=== PATIENT | male | born 1985 | race Hispanic/Latino ===

== ENCOUNTER 2022-03-29 19:06 | Emergency (ER) | payer OTHER ==
[2022-03-29 19:35] LABS: Absolute Lymphocytes (CBC) 2.9 K/uL (0.7-4.9); Hematocrit 46.5 % (39.6-49.0); Lymphocytes % 43.9 % (15.3-44.8); MCV 87.8 fL (80-100); MPV 8.9 fL (7.6-11.3); RBC Red Blood Cell Count 5.29 M/uL (4.33-5.43)
[2022-03-29 19:49] LABS: Potassium 3.8 mmol/L (3.5-5.1); Troponin High Sensitivity 3.2 pg/mL (<58.9)
[2022-03-29 19:54] LABS: Urine Blood Negative (Negative); Urine Glucose Negative (Negative); Urine Protein Negative (Negative); Urine Specific Gravity 1.025 (1.005-1.030); Urine pH 6.5 (5.0-7.0)
--- NOTE | 2022-03-29 21:23 | RAD REPORT ---
EXAM DESCRIPTION: RAD - Chest Single View - 03/29/2022 8:19 pm CLINICAL HISTORY: CHEST PAIN Chest pain. COMPARISON: No comparisons FINDINGS: Portable technique limits examination quality. The lungs are grossly clear. The heart is normal in size. No displaced fractures.Moderate hiatal joyce ia. IMPRESSION: No acute intrathoracic process suspected.
--- NOTE | 2022-03-29 22:52 | ER ---
Nurse's Notes [facility] Name: Andrez Kulkarni Age: 36 yrs Sex: Male : 1985 Arrival Date: 03/29/2022 Time: 19:09 Bed 23 Private MD: Diagnosis: Chest pain, unspecified Presentation: 03/29 19:16 Chief complaint: Patient states: Intermittent chest pain X 1 week. Pt reporting chest ld1 pain and mid upper back pain. Coronavirus screen: At this time, the client does not indicate any symptoms associated with coronavirus-19. Ebola Screen: No symptoms or risks identified at this time. Initial Sepsis Screen: Does the patient meet any 2 criteria? No. Patient's initial sepsis screen is negative. Does the patient have a suspected source of infection? No. Patient's initial sepsis screen is negative. Risk Assessment: Do you want to hurt yourself or someone else? Patient reports no desire to harm self or others. Onset of symptoms was March 29, 2022. 19:16 Method Of Arrival: Ambulatory ld1 19:16 Acuity: CAREY 3 ld1 Triage Assessment: 19:17 General: Appears in no apparent distress. comfortable, Behavior is calm, cooperative, ld1 appropriate for age. Pain: Complains of pain in chest Pain radiates to back Pain currently is 8 out of 10 on a pain scale. Quality of pain is described as throbbing. EENT: No signs and/or symptoms were reported regarding the EENT system. Neuro: Level of Consciousness is awake, alert, obeys commands, Oriented to person, place, time, situation. Cardiovascular: Capillary refill < 3 seconds Patient's skin is warm and dry. Rhythm is sinus tachycardia. Respiratory: Airway is patent Respiratory effort is even, unlabored. GI: Abdomen is round non-distended. : No signs and/or symptoms were reported regarding the genitourinary system. Derm: No signs and/or symptoms reported regarding the dermatologic system. Musculoskeletal: No signs and/or symptoms reported regarding the musculoskeletal system. Historical: - Allergies: 19:17 No Known Allergies; ld1 - PMHx: 19:17 Bipolar disorder; Schizophrenia; Hypercholesterolemia; Hypothyroidism; ld1 - PSHx: 19:17 None; ld1 - Immunization history:: Adult Immunizations up to date, Client reports having NOT received the Covid vaccine. - Social history:: Smoking status: Patient denies any tobacco usage or history of. Patient/guardian denies using alcohol. Screenin:38 Abuse screen: Denies threats or abuse. Abuse screen: Denies threats or abuse. Abuse bh1 screen: Denies threats or abuse. Nutritional screening: No deficits noted. Tuberculosis screening: No symptoms or risk factors identified. Fall Risk None identified. Assessment: 19:38 Pain: Pain began 2-3 days ago. 1 19:38 Reassessment: No changes from previously documented assessment. General: Appears in no [facility] apparent distress. Behavior is calm, cooperative, appropriate for age. Pain: Complains of pain in chest Pain does not radiate. Vital Signs: 19:16 BP 138 / 109; Pulse 84; Resp 18; Temp 98.1(TE); Pulse Ox 97% on R/A; Weight 76.2 kg; ld1 Height 5 ft. 1 in. (154.94 cm); Pain 8/10; 19:38 BP 133 / 105; Pulse 88; Resp 18; Pulse Ox 100% on R/A; bh1 20:54 BP 136 / 102; Pulse 88; Resp 18; Pulse Ox 99% on R/A; bh1 22:01 BP 138 / 106; Pulse 75; Resp 18; Pulse Ox 98% on R/A; bh1 22:57 BP 132 / 102; Pulse 88; Resp 18; Temp 98.3(O); Pulse Ox 100% on R/A; bh1 19:16 Body Mass Index 31.74 (76.20 kg, 154.94 cm) 1 ED Course: 19:09 Patient arrived in ED. as 19:11 Criselda Mendoza, KRISTAL is Primary Nurse. bh1 19:11 Lisa Madrid FNP-C is PHCP. kb 19:11 Haja Tripathi MD is Attending Physician. kb 19:17 Triage completed. ld1 19:17 Arm band placed on right wrist. ld1 19:21 Inserted saline lock: 20 gauge in right antecubital area, using aseptic technique. zm Blood collected. 19:22 Basic Metabolic Panel Sent. zm 19:22 CBC with Diff Sent. zm 19:22 Troponin HS Sent. zm 19:38 No apparent distress. Resting quietly. Awaiting lab results, Awaiting radiology results.bh1 19:38 Patient has correct armband on for positive identification. Placed in gown. Bed in low bh1 position. Call light in reach. Side rails up X 1. Adult w/ patient. guillotine operator on. Pulse ox on. NIBP on. 19:38 No provider procedures requiring assistance completed. Patient maintains SpO2 bh1 saturation greater than 95% on room air. 20:21 XRAY Chest (1 view) In Process Unspecified. EDMS 20:54 No apparent distress. Resting quietly. Awaiting lab results, Awaiting radiology results.[facility] 21:45 COVID-19 SARS RT PCR (Document "Date of Onset" if Symptomatic) Sent. [facility] 22:01 No apparent distress. Resting quietly. Awaiting lab results. [facility] 22:57 IV discontinued, intact, bleeding controlled, No redness/swelling at site. [facility] Administered Medications: No medications were administered Medication: 19:38 VIS not applicable for this client. [facility] Outcome: 22:52 Discharge ordered by . jackie 22:57 Discharged to home ambulatory. [facility] 22:57 Condition: good 22:57 Discharge instructions given to patient, family, Instructed on discharge instructions, follow up and referral plans. Demonstrated understanding of instructions, follow-up care. 22:58 Patient left the ED. [facility] Signatures: Dispatcher [employer] Lisa García, EZ HESS-Jovana Fisher Lauren, RN RN 1 Sveta Laird Barbara, RN RN 1
--- NOTE | 2022-03-29 22:52 | EDPHYS ---
Physician Documentation [facility] Name: Andrez Kulkarni Age: 36 yrs Sex: Male : 1985 Arrival Date: 03/29/2022 Time: 19:09 Bed 23 Private MD: ED Physician Haja Tripathi HPI: 03/29 21:08 This 36 yrs old Male presents to ER via Ambulatory with complaints of Chest kb Pain. 21:08 The patient or guardian reports chest pain that is located primarily in the anterior kb chest wall, left. The pain does not radiate. Associated signs and symptoms: The patient has no apparent associated signs or symptoms. The chest pain is described as aching. Duration: The patient or guardian reports multiple episodes. Modifying factors: The symptoms are alleviated by nothing. the symptoms are aggravated by nothing. Severity of pain: At its worst the pain was moderate in the emergency department the pain is unchanged. The patient has not experienced similar symptoms in the past. The patient has not recently seen a physician. Pt reports intermittent chest pain for a week. States he has also had some back pain. Historical: - Allergies: 19:17 No Known Allergies; ld1 - PMHx: 19:17 Bipolar disorder; Schizophrenia; Hypercholesterolemia; Hypothyroidism; ld1 - PSHx: 19:17 None; ld1 - Immunization history:: Adult Immunizations up to date, Client reports having NOT received the Covid vaccine. - Social history:: Smoking status: Patient denies any tobacco usage or history of. Patient/guardian denies using alcohol. ROS: 21:07 Constitutional: Negative for fever, chills, and weight loss. kb 21:07 Cardiovascular: Positive for chest pain, Negative for edema, orthopnea, palpitations, paroxysmal nocturnal dyspnea. 21:07 Back: Positive for pain at rest, of the left subscapular area and right subscapular area. 21:07 All other systems are negative. Exam: 21:07 Constitutional: This is a well developed, well nourished patient who is awake, alert, kb and in no acute distress. Head/Face: Normocephalic, atraumatic. ENT: Moist Mucous membranes Cardiovascular: Regular rate and rhythm with a normal S1 and S2. No gallops, murmurs, or rubs. No pulse deficits. Respiratory: Respirations even and unlabored. No increased work of breathing. Talking in full sentences Back: No spinal tenderness. No costovertebral tenderness. Full range of motion. Skin: Warm, dry with normal turgor. Normal color. MS/ Extremity: Pulses equal, no cyanosis. Neurovascular intact. Full, normal range of motion. Neuro: Awake and alert, GCS 15, oriented to person, place, time, and situation. Moves all extremities. Normal gait. Psych: Awake, alert, with orientation to person, place and time. Behavior, mood, and affect are within normal limits. Vital Signs: 19:16 BP 138 / 109; Pulse 84; Resp 18; Temp 98.1(TE); Pulse Ox 97% on R/A; Weight 76.2 kg; ld1 Height 5 ft. 1 in. (154.94 cm); Pain 8/10; 19:38 BP 133 / 105; Pulse 88; Resp 18; Pulse Ox 100% on R/A; bh1 20:54 BP 136 / 102; Pulse 88; Resp 18; Pulse Ox 99% on R/A; bh1 22:01 BP 138 / 106; Pulse 75; Resp 18; Pulse Ox 98% on R/A; bh1 22:57 BP 132 / 102; Pulse 88; Resp 18; Temp 98.3(O); Pulse Ox 100% on R/A; bh1 19:16 Body Mass Index 31.74 (76.20 kg, 154.94 cm) ld1 MDM: 19:11 Patient medically screened. kb 21:07 Data reviewed: vital signs, nurses notes. Data interpreted: Pulse oximetry: on room air kb is 99 %. Interpretation: normal. Counseling: I had a detailed discussion with the patient and/or guardian regarding: the historical points, exam findings, and any diagnostic results supporting the discharge/admit diagnosis, lab results, radiology results, the need for outpatient follow up, a family practitioner, to return to the emergency department if symptoms worsen or persist or if there are any questions or concerns that arise at home. 03/29 19:16 Order name: Basic Metabolic Panel; Complete Time: 19:51 kb 03/29 19:16 Order name: CBC with Diff; Complete Time: 19:46 kb 03/29 19:16 Order name: Troponin HS; Complete Time: 19:51 kb 03/29 19:16 Order name: XRAY Chest (1 view); Complete Time: 21:25 kb 03/29 19:54 Order name: Urine Dipstick-Ancillary; Complete Time: 20:05 EDMS 03/29 21:37 Order name: COVID-19 SARS RT PCR (Document "Date of Onset" if Symptomatic); Complete kb Time: 22:51 03/29 19:16 Order name: Cardiac monitoring; Complete Time: 19:22 kb 03/29 19:16 Order name: EKG - Nurse/Tech; Complete Time: 19:22 kb 03/29 19:16 Order name: IV Saline Lock; Complete Time: 19:22 kb 03/29 19:16 Order name: Labs collected and sent; Complete Time: 19:22 kb 03/29 19:16 Order name: O2 Per Protocol; Complete Time: 19:36 kb 03/29 19:16 Order name: O2 Sat Monitoring; Complete Time: 19:36 kb 03/29 19:16 Order name: Urine Dipstick-Ancillary (obtain specimen); Complete Time: 19:53 kb Administered Medications: No medications were administered Disposition Summary: 03/29/22 22:52 Discharge Ordered Location: Home kb Condition: Stable kb Diagnosis - Chest pain, unspecified kb Followup: kb - With: Emergency Department - When: As needed - Reason: Worsening of condition Followup: kb - With: Private Physician - When: 2 - 3 days - Reason: Recheck today's complaints, Continuance of care, Re-evaluation by your physician Discharge Instructions: - Discharge Summary Sheet kb - Nonspecific Chest Pain, Adult, [id number] kb Forms: - Medication Reconciliation Form kb - Thank You Letter kb - Antibiotic Education kb - Prescription Opioid Use kb Signatures: Dispatcher [employer] Lisa García, JIMENA-Alysia Sanches, RN RN ld1
[2022-03-29 23:09] VITALS: BP 132/102; TEMP 98.3; O2SAT 100
--- NOTE | 2022-03-30 09:50 | EKG ---
Test Date: 2022-03-29 Test Time: 19:20:18 Embryology Professor: CHIKA MEASUREMENT RESULTS: Intervals: Rate: 60 OK: 142 QRSD: 90 QT: 388 QTc: 388 [place]: P: 29 OK: 142 QRS: 76 T: 41 INTERPRETIVE STATEMENTS: Normal sinus rhythm Normal ECG No previous ECG available for comparison Electronically Signed On 03-30-22 09:48:35 CDT by Teddy March
== END 2022-03-29 22:58 | disposition home or self-care (01) ==
LOC: ER 19:06
DX: R07.89 Other chest pain (principal); E78.00 Pure hypercholesterolemia, unspecified; E03.9 Hypothyroidism, unspecified; Z20.822 Contact with and (suspected) exposure to COVID-19
CPT/HCPCS: 36415; 71045; 80048; 81003; 84484; 85025; 93005; U0003